=== PATIENT | female | born 1995 | race Two or more races ===

== ENCOUNTER 2022-10-04 23:15 | Emergency (ER) | payer OTHER ==
[~2022-10-04] VITALS: Ht 177.8 cm; Wt 127.0 kg
[2022-10-05] MEDS ORDERED: BENADRYL25 MG PO (06:11)
[2022-10-05] MEDS ORDERED: PEPCID40 MG PO (06:11)
[2022-10-05] MEDS ORDERED: MEDROL8 MG PO (06:11)
== END 2022-10-05 06:15 ==
LOC: ER 23:15
DX: L50.8 Other urticaria (principal); Z88.6 Allergy status to analgesic agent